=== PATIENT | male | born 1985 | race African-American/Black ===

== ENCOUNTER 2022-08-08 17:09 | Inpatient (IN) | payer MEDICAID ==
[~2022-08-08] VITALS: Ht 175.3 cm; Wt 90.7 kg
[2022-08-08 17:15] VITALS: BP_SYST 153
--- NOTE | 2022-08-08 18:31 | NUR ---
Placed in room 05 . Placed on director script, blood pressure machine and pulse oximeter. To gown for exam. Side rails up. Report given to BEATRIZ Del Angel
--- NOTE | 2022-08-08 18:56 | NUR ---
PATIENT AMBULATORY TO ER, AAOX4 SPEECH CLEAR AND COHERENT, C/O ABDOMINAL PAIN AND VOMITING MANY TIMES, PLACE IN BED 5, AWAITING FOR EDP FOR INITIAL ASSESSMENT.
[2022-08-08] MEDS ORDERED: ONDANSETRON HCL 4 MG/2 ML VIAL IVP ONE (19:00)
--- NOTE | 2022-08-08 19:07 | NUR ---
RECEIVED REPORT PEPITO Corral Pt PENDING EVJORDAN/ ASSESSMENT.
[2022-08-08] MEDS ORDERED: NACL 0.9% 1,000 ML IV ONE (19:15)
[2022-08-08 19:47] LABS: BASOPHILS # (AUTO) 0.1 K/uL (0.0-0.2); BASOPHILS % (AUTO) 0.7 % (0.0-2.0); HEMATOCRIT 43.9 % (36-54); LYMPHOCYTES # (AUTO) 0.7 K/uL (1.0-5.5); LYMPHOCYTES % (AUTO) 5.9 % (20.5-51.5); MEAN CORPUSCULAR VOLUME 98 fL (79.0-98.0); MONOCYTES # (AUTO) 0.5 K/uL (0.0-1.0); MONOCYTES % (AUTO) 4.6 % (1.7-9.3); NEUTROPHILS # (AUTO) 10.5 K/uL (1.8-7.7); NEUTROPHILS % (AUTO) 88.8 % (40.0-70.0); PLATELET COUNT (AUTO) 144 K/uL (130-430); RED BLOOD CELL COUNT(AUTO) 4.48 MIL/uL (4.2-6.2); RED CELL DISTRIBUTION WIDTH 14.2 % (9.0-15.0); WHITE BLOOD COUNT (AUTO) 11.8 K/uL (4.8-10.8)
[2022-08-08 19:49] LABS: ANION GAP 15 (5-15); CALCIUM 11.4 mg/dL (8.4-11.0); CHLORIDE 100 mmol/L (98-107); CREATININE 1.97 mg/dL (0.55-1.30); GLUCOSE 180 mg/dL (70-99); POTASSIUM 3.5 mmol/L (3.5-5.1); UREA NITROGEN, BLOOD 10 mg/dL (8-21)
[2022-08-08 19:51] LABS: GFR AFRICAN AMERICAN 49 mL/min (>90)
[2022-08-08 20:06] LABS: ALANINE AMINOTRANSFERASE 63 U/L (12-78); ALBUMIN 4.4 g/dL (3.4-4.8); ASPARTATE AMINOTRANSFERASE 125 U/L (10-37); TOTAL BILIRUBIN 1.7 mg/dL (0.0-1.0)
[2022-08-08 20:25] LABS: LIPASE 4330 U/L (73-393)
[2022-08-08] MEDS ORDERED: MORPHINE 4 MG INJ. 4 MG/ML VIAL IVP ONE ×2 (20:30→21:30)
[2022-08-08] MEDS ORDERED: cefTRIAXone 1 GM IVPB PREMIX 50 ML IV ONE (20:30)
[2022-08-08] MEDS ORDERED: NACL 0.9% 2,000 ML IV ONE (21:00)
[2022-08-08] MEDS ORDERED: LABETALOL HCL 20 MG/4 ML CARTRIDGE IVP ONE (21:30)
[2022-08-08] MEDS: LR 1,000 ML IV SCH (21:45)
[2022-08-08] MEDS ORDERED: HYDROmorphone 1 MG/ML INJ. CARTRIDGE IVP PRN ×2 (22:00)
[2022-08-08] MEDS ORDERED: PANTOPRAZOLE SODIUM 40 MG/VIAL (PROTONIX) IVP ONE (22:00)
[2022-08-08] MEDS ORDERED: DEXTROSE 50% JECT 50 ML DISP.SYRIN IVP PRN (22:00)
[2022-08-08] MEDS ORDERED: ONDANSETRON HCL 4 MG/2 ML VIAL IVP PRN (22:00)
--- NOTE | 2022-08-08 22:22 | NUR ---
PT W/ C/O PAIN THAT IS DIFFUSED TO ABD, NO RELIEF FROM MORPHINE IVP.
[2022-08-08] MEDS ORDERED: MORPHINE 4 MG INJ. 4 MG/ML VIAL ONE (22:32)
[2022-08-08 22:55] LABS: CKMB RELATIVE INDEX 1.5 (0.0-2.9); CREATINE KINASE MB 5.6 ng/mL (0-3.6)
[2022-08-08] MEDS ORDERED: GLIP2.5T3 PO (23:06)
[2022-08-08] MEDS ORDERED: METF-863 PO (23:06)
[2022-08-08] MEDS ORDERED: NEU300 PO (23:07)
[2022-08-08] MEDS ORDERED: [UNRECOGNIZED DRUG - CODE] PO (23:08)
[2022-08-08] MEDS ORDERED: CYCL10TA24 PO (23:09)
[2022-08-08] MEDS ORDERED: PANT20TA16 PO (23:10)
[2022-08-08] MEDS ORDERED: FOLI-43 PO (23:11)
[2022-08-08] MEDS ORDERED: NABU-140 PO (23:11)
--- NOTE | 2022-08-08 23:19 | NUR ---
Medication reconciliation completed with information provided by patient. Any prior medication reconciliation on file was reviewed and corrected.
[2022-08-08 23:57] LABS: BILIRUBIN,URINE NEGATIVE (NEGATIVE); BLOOD, URINE 1+ (NEGATIVE); CLARITY/URINE CLEAR (CLEAR); COLOR,URINE YELLOW (YELLOW); GLUCOSE,URINE 2+ (NEGATIVE); KETONES,URINE TRACE (NEGATIVE); LEUKOCYTE ESTERASE ,URINE NEGATIVE (NEGATIVE); NITRITE, URINE NEGATIVE (NEGATIVE); PROTEIN URINE 1+ (NEGATIVE)
[2022-08-09] MEDS ORDERED: CARVEDILOL 6.25 MG TABLET (COREG) PO ONE (00:15)
[2022-08-09 00:38] LABS: BARBITURATE, URINE NEGATIVE (NEG <=200); BENZODIAZEPINE, URINE NEGATIVE (NEG <=150); CANNABINOID, URINE POSITIVE (NEG <=50); COCAINE, URINE NEGATIVE (NEG <=150); METHAMPHETAMINES SCREEN,URINE NEGATIVE (NEG <=500); OPIATE, URINE POSITIVE (NEG <=100); URINE AMPHETAMINE NEGATIVE (NEG <=500); URINE METHADONE NEGATIVE (NEG <=200)
[2022-08-09 00:39] LABS: PHENCYCLIDINE SCREEN,URINE NEGATIVE (NEG <=25); UR TRICYCLIC ANTIDEPRESSANTS NEGATIVE (NEG <=300); URINE OXYCODONE SCREEN NEGATIVE (NEG <=100); URINE PROPOXYPHENE SCREEN NEGATIVE (NEG <=300)
[2022-08-09] MEDS: cloNIDine HCL 0.1 MG TABLET PO PRN ×2 (00:44→02:32)
[2022-08-09] MEDS ORDERED: PANTOPRAZOLE SODIUM 40 MG/VIAL (PROTONIX) ONE (00:55)
--- NOTE | 2022-08-09 01:15 | NUR ---
PT W/ INCREASED BP, DR METCALF CALLED, ORDERS GIVEN
--- NOTE | 2022-08-09 01:50 | NUR ---
BP RE-ASSED S/P PAIN MED AND PO BP CONTINUES TO BE HIGH. 186/121
--- NOTE | 2022-08-09 02:32 | NUR ---
Medicated for increased BP w/ clonidine as per orders.
[2022-08-09] MEDS ORDERED: cloNIDine HCL 0.1 MG TABLET ONE (02:34)
--- NOTE | 2022-08-09 02:50 | NUR ---
Pt endorsed Patient will be admitted to care of [facility]. Admitted to Tele unit. Will go to Tele floor when a bed is avail.- at present a ER hold. Belongings list completed. Complete and up to date summary report printed. SBAR report given to Iftikhar Squires RN, given at bedside in ED room #5, with opportunity for questions.
[2022-08-09 03:18] VITALS: BP_SYST 176
--- NOTE | 2022-08-09 03:44 | NUR ---
CONSULTATION PAGED/CALLED Reason for Consultation: ACUTE PRANCREATITIS Person Who was Notified: LUDA Consulting Physician: DONTAE Director Of Income Tax Specialty: Ordering Physician: TEA
--- NOTE | 2022-08-09 04:04 | NUR ---
Report received from TULIO HENDERSON in ER - patient admitted under TELEMETRY but cannot transfer at this time due to staff shortage. Will hold in ER until room available in morning. Patient admitted with diagnosis ACUTE PANCREATITIS.
[2022-08-09 07:00] VITALS: BP_SYST 152
[2022-08-09] MEDS: LR 1,000 ML IV SCH ×5 (07:45→22:45)
--- NOTE | 2022-08-09 07:55 | NUR ---
Patient transferred at this time vital signs stable. IV mid transfer fell out. Attempted 1 try - unsuccessful. Due to time constraints forwarded to [facility] RN. Addendum: 08/09/22 at 0857 by Iftikhar Mckenna RN Transferred to 128A at 0755 [employer]
[2022-08-09 08:00] VITALS: BP_SYST 152
[2022-08-09 08:49] LABS: ALBUMIN 3.3 g/dL (3.4-4.8); CALCIUM 8.6 mg/dL (8.4-11.0); CREATININE 1.55 mg/dL (0.55-1.30); PHOSPHORUS 4.2 mg/dL (2.7-4.5); TOTAL BILIRUBIN 0.9 mg/dL (0.0-1.0)
[2022-08-09] MEDS: PANTOPRAZOLE SODIUM 40 MG/VIAL (PROTONIX) IVP SCH ×2 (09:00→21:16)
[2022-08-09] MEDS: CARVEDILOL 6.25 MG TABLET (COREG) PO SCH ×2 (09:14→21:32)
[2022-08-09 10:25] LABS: INR 1.3 (0.80-1.20); PROTHROMBIN TIME 12.5 SECS (9.5-12.5)
[2022-08-09] MEDS: ACETAMINOPHEN 325 MG TABLET PO PRN (11:55)
[2022-08-09 12:00] VITALS: BP_SYST 159
[2022-08-09 14:18] LABS: BASOPHILS # (AUTO) 0.1 K/uL (0.0-0.2); BASOPHILS % (AUTO) 0.5 % (0.0-2.0); EOSINOPHILS % (AUTO) 0.1 % (0.0-4.0); HEMATOCRIT 40.7 % (36-54); LYMPHOCYTES # (AUTO) 0.7 K/uL (1.0-5.5); LYMPHOCYTES % (AUTO) 5.1 % (20.5-51.5); MEAN CORPUSCULAR VOLUME 101 fL (79.0-98.0); MONOCYTES # (AUTO) 0.5 K/uL (0.0-1.0); MONOCYTES % (AUTO) 3.8 % (1.7-9.3); NEUTROPHILS # (AUTO) 12.1 K/uL (1.8-7.7); NEUTROPHILS % (AUTO) 90.5 % (40.0-70.0); PLATELET COUNT (AUTO) 120 K/uL (130-430); RED BLOOD CELL COUNT(AUTO) 4.04 MIL/uL (4.2-6.2); RED CELL DISTRIBUTION WIDTH 14.6 % (9.0-15.0); WHITE BLOOD COUNT (AUTO) 13.4 K/uL (4.8-10.8)
[2022-08-09] MEDS ORDERED: LEVE500T9 PO (18:34)
[2022-08-09] MEDS ORDERED: CYCLOBENZAPRINE HCL 10 MG TABLET (FLEXERIL) PO PRN (19:45)
[2022-08-09 20:00] VITALS: BP_SYST 150
[2022-08-09] MEDS: chlordiazePOXIDE HCL 25 MG CAPSULE PO SCH (21:16)
[2022-08-09] MEDS: levETIRAcetam 500 MG TABLET PO SCH (21:16)
[2022-08-09] MEDS: GABAPENTIN 300 MG CAPSULE PO SCH (21:16)
[2022-08-09] MEDS: LORazepam 2 MG/ML VIAL IVP PRN (21:18)
[2022-08-09] MEDS: cefTRIAXone 1 GM in D5W 50 ML IV SCH (22:00)
[2022-08-09] MEDS ORDERED: cefTRIAXone 1 GM IVPB PREMIX 50 ML IV ONE (23:21)
[2022-08-10] VITALS: BP_SYST 140
[2022-08-10] MEDS: LR 1,000 ML IV SCH ×4 (03:45→17:29)
--- NOTE | 2022-08-10 06:55 | NUR ---
21:18 THIS RN TO MEDICATE PT WITH ATIVAN IV MD ORDERED PRN- PT VOICED HE WAS ANXIOUS AND NERVOUS. 21:35 BED ALARM SOUNDING AND PATIENT NOTED TRYING TO GET OUT OF BED WITH AN UNSTEADY GAIT AND CONFUSION PRESENT- VOICING HE WANTED TO LEAVE THIS PLACE AND WASN'T SURE HOW HE GOT HERE. PATIENT NOTED WITH WET PERSONAL CLOTHING ON AND BEDDING SATURATED. NOTE SAFETY AND KEEPING PATIENT CLEAN AND DRY. 22:00 PATIENT BED ALARM SOUNDING PATIENT WAS TRYING TO GET OUT OF BED- THIS RN TO SPEAK WITH CHARGE NURSE IN REGARDS TO PATIENT SAFETY AND HIS ROOM BEING SO FAR AT THE END OF THE CHACKO WITH THE INCREASED CONFUSION THUS FAR. 22:10 PATIENT AND PERSONAL BELONGINGS MOVED TO ROOM 103B- WHICH IS CLOSER TO THE NURSES STATION.
[2022-08-10 08:00] VITALS: BP_SYST 156
[2022-08-10] MEDS: PANTOPRAZOLE SODIUM 40 MG/VIAL (PROTONIX) IVP SCH ×2 (09:39→21:51)
[2022-08-10] MEDS: GABAPENTIN 300 MG CAPSULE PO SCH ×3 (09:40→21:52)
[2022-08-10] MEDS: FOLIC ACID 1 MG TABLET PO SCH (09:40)
[2022-08-10] MEDS: chlordiazePOXIDE HCL 25 MG CAPSULE PO SCH ×3 (09:40→21:52)
[2022-08-10] MEDS: levETIRAcetam 500 MG TABLET PO SCH ×2 (09:40→21:52)
[2022-08-10] MEDS: CARVEDILOL 6.25 MG TABLET (COREG) PO SCH ×2 (09:49→21:51)
[2022-08-10 11:25] LABS: ALBUMIN 2.9 g/dL (3.4-4.8); CALCIUM 8.1 mg/dL (8.4-11.0); CREATININE 1.58 mg/dL (0.55-1.30); POTASSIUM 3.8 mmol/L (3.5-5.1); TOTAL BILIRUBIN 0.9 mg/dL (0.0-1.0)
[2022-08-10 11:33] VITALS: BP_SYST 134
[2022-08-10 15:28] VITALS: BP_SYST 141
[2022-08-10 15:38] LABS: HEMATOCRIT 44.8 % (36-54); MEAN CORPUSCULAR VOLUME 103 fL (79.0-98.0); PLATELET COUNT (AUTO) 109 K/uL (130-430); RED BLOOD CELL COUNT(AUTO) 4.35 MIL/uL (4.2-6.2); RED CELL DISTRIBUTION WIDTH 14.5 % (9.0-15.0)
[2022-08-10] MEDS ORDERED: FOLIC ACID 1 MG, THIAMINE HCL 100 MG, MAGNESIUM SULFATE 1 GM, MVI 10 ML in NACL 0.9% 1,... IV SCH (17:45)
--- NOTE | 2022-08-10 18:45 | NUR ---
Mr Wetzel has been assessed as indicated He continues to deny pain. He has made no attempts to ambulate without assistance. He remains confused but has become more clear as the day has progressed. He has been better able to follow the lines of conversation. His mother and father have been at the bedside most of the day. He is slated for a MRCP tomorrow 08/11/22. the questionnaire has been completed and placed in his chart. He has started to attempt to use the urinal to avoid episodes of incontinence that he experienced earlier in the day.
--- NOTE | 2022-08-10 19:15 | NUR ---
Handoff has been given to Rahul
--- NOTE | 2022-08-10 20:00 | NUR ---
Recieved pt from PM nurse Rahul. Pt is aox3-4, non ambulatory, lungs clear, neuro is forgetful, pt sched for MRi and mrcp in am pt denies pain, pt refused BGL check for PM. Vj educate on importance of understanding how to control DM, with BGL checks consistenly. Pt incontinent on RA. Vj monitor for the night
[2022-08-10 20:20] VITALS: BP_SYST 140; BP_SYST 142
[2022-08-10 21:12] LABS: BAND % (MANUAL) 33 % (0-6); BASOPHILS % (MANUAL) 0 % (0-2); EOSINOPHILS % (MANUAL) 0 % (0-7); LYMPHOCYTES % (MANUAL) 9 % (20-46); MONOCYTES % (MANUAL) 4 % (0-11)
[2022-08-10] MEDS: cefTRIAXone 1 GM in D5W 50 ML IV SCH (22:00)
--- NOTE | 2022-08-10 22:00 | NUR ---
Pt stil refuses BGL, will get AM BGL.
[2022-08-11 08:02] LABS: BASOPHILS # (AUTO) 0.1 K/uL (0.0-0.2); BASOPHILS % (AUTO) 0.5 % (0.0-2.0); EOSINOPHILS % (AUTO) 0.1 % (0.0-4.0); HEMATOCRIT 37.3 % (36-54); LYMPHOCYTES # (AUTO) 1.6 K/uL (1.0-5.5); LYMPHOCYTES % (AUTO) 9.5 % (20.5-51.5); MEAN CORPUSCULAR VOLUME 100 fL (79.0-98.0); MONOCYTES # (AUTO) 1.4 K/uL (0.0-1.0); MONOCYTES % (AUTO) 8.5 % (1.7-9.3); NEUTROPHILS # (AUTO) 13.5 K/uL (1.8-7.7); PLATELET COUNT (AUTO) 95 K/uL (130-430); RED BLOOD CELL COUNT(AUTO) 3.74 MIL/uL (4.2-6.2); WHITE BLOOD COUNT (AUTO) 16.5 K/uL (4.8-10.8)
[2022-08-11] MEDS: PANTOPRAZOLE SODIUM 40 MG/VIAL (PROTONIX) IVP SCH ×2 (08:19→20:29)
[2022-08-11] MEDS: CARVEDILOL 6.25 MG TABLET (COREG) PO SCH ×2 (08:19→20:31)
[2022-08-11] MEDS: chlordiazePOXIDE HCL 25 MG CAPSULE PO SCH ×3 (08:20→20:30)
[2022-08-11] MEDS: GABAPENTIN 300 MG CAPSULE PO SCH ×3 (08:20→20:30)
[2022-08-11] MEDS: levETIRAcetam 500 MG TABLET PO SCH ×2 (08:20→20:30)
[2022-08-11] MEDS: FOLIC ACID 1 MG TABLET PO SCH (08:20)
--- NOTE | 2022-08-11 08:21 | NUR ---
rn notes patient refused medications. multiple times. Discussed with him the benefits of taking medications, refused again. took vital signs, patient seems to be acting confused at this time.
[2022-08-11 08:23] LABS: INR 1.2 (0.80-1.20); PROTHROMBIN TIME 12.3 SECS (9.5-12.5)
[2022-08-11 08:27] LABS: ALBUMIN 2.4 g/dL (3.4-4.8); CALCIUM 7.9 mg/dL (8.4-11.0); CREATININE 1.49 mg/dL (0.55-1.30); POTASSIUM 3.6 mmol/L (3.5-5.1); THYROID STIMULATING HORMONE 0.99 uIu/mL (0.36-3.74); TOTAL BILIRUBIN 0.9 mg/dL (0.0-1.0)
--- NOTE | 2022-08-11 08:46 | NUR ---
rn notes patient refusing cleaning. pushing nurses away, grabbing my shirt and tried to pull me. Charge nurse aware, tobacco warehouse agent aware.
[2022-08-11 09:16] VITALS: BP_SYST 144
[2022-08-11 09:19] LABS: NEUTROPHILS % (AUTO) 81.4 % (40.0-70.0)
[2022-08-11] MEDS: LORazepam 2 MG/ML VIAL IVP PRN (09:52)
[2022-08-11] MEDS: FOLIC ACID 1 MG, MVI 10 ML in NACL 0.9% 1,000 ML IV SCH (10:56)
[2022-08-11] MEDS: THIAMINE HCL 100 MG, MAGNESIUM SULFATE 1 GM in NS 100 ML IV SCH (10:56)
[2022-08-11 11:30] VITALS: BP_SYST 165
[2022-08-11] MEDS: cloNIDine HCL 0.1 MG TABLET PO PRN ×2 (13:39→15:44)
--- NOTE | 2022-08-11 15:30 | NUR ---
BUCKLER AND LACER ACSW Lindsay attempted to engage patient to address positive cannabinoids and opiates toxicology results. ACSW stated patient's name 3x, but patient did not wake up. ACSW consulted with RN who stated patient has been confused and is withdrawing. ACSW will continue to be available as needed.
--- NOTE | 2022-08-11 17:49 | NUR ---
rn notes patient remains on room air. Possible withdrawal from etoh, opiates. Ativan given, BP high, catapress given. MD aware. MRI brain, MRCP done. MRI brain negative. MRCP shows acute pancreatitis. Plan is to dc to [place] [facility].
[2022-08-11] MEDS ORDERED: chlordiazePOXIDE HCL 25 MG CAPSULE PO ONE (18:00)
[2022-08-11 20:00] VITALS: BP_SYST 132
[2022-08-11] MEDS ORDERED: cefTRIAXone 1 GM IVPB PREMIX 50 ML IV ONE (23:38)
[2022-08-12] VITALS: BP_SYST 147
[2022-08-12] MEDS: cefTRIAXone 1 GM in D5W 50 ML IV SCH ×2 (00:33→23:43)
--- NOTE | 2022-08-12 00:39 | NUR ---
Patient has been in bed resting , eyes closed, needed light stimulus to awaken prior to this round. Patient currently awake, alert and oriented. Patient assisted to bathroom with mod assist x1.
--- NOTE | 2022-08-12 06:09 | NUR ---
Patient currently in bed resting. Patient c/o no pain during this shift, amb to toliet x1 at this time. Patient was incontinent at the beginning of the shift. Patient was pleasant through out this shift. Patient with no noted wounds. Patient took all meds during this shift with no difficulties. Patient had banana bag scheduled for 1000, please pass on to next shift that Patient does not have IVF that run in between the banana bags. Dr. Ross was called last night and he stated there are no other orders for fluids and to not call him and ask about fluids that are not ordered.
--- NOTE | 2022-08-12 06:52 | NUR ---
This nurse requested to change Patient prior to end of shift, however, Patient states that he is clean and does not need to be changed at this time.
[2022-08-12 06:59] LABS: BASOPHILS # (AUTO) 0.1 K/uL (0.0-0.2); BASOPHILS % (AUTO) 0.6 % (0.0-2.0); EOSINOPHILS # (AUTO) 0.1 K/uL (0.0-0.4); EOSINOPHILS % (AUTO) 1.1 % (0.0-4.0); LYMPHOCYTES # (AUTO) 1.8 K/uL (1.0-5.5); LYMPHOCYTES % (AUTO) 13.5 % (20.5-51.5); MEAN CORPUSCULAR VOLUME 99 fL (79.0-98.0); MONOCYTES # (AUTO) 1.5 K/uL (0.0-1.0); MONOCYTES % (AUTO) 11.3 % (1.7-9.3); NEUTROPHILS # (AUTO) 9.8 K/uL (1.8-7.7); NEUTROPHILS % (AUTO) 73.5 % (40.0-70.0); PLATELET COUNT (AUTO) 119 K/uL (130-430); RED BLOOD CELL COUNT(AUTO) 3.34 MIL/uL (4.2-6.2); RED CELL DISTRIBUTION WIDTH 13.7 % (9.0-15.0); WHITE BLOOD COUNT (AUTO) 13.3 K/uL (4.8-10.8)
[2022-08-12 07:25] LABS: ALBUMIN 2.1 g/dL (3.4-4.8); CALCIUM 7.5 mg/dL (8.4-11.0); CREATININE 1.24 mg/dL (0.55-1.30); POTASSIUM 3.6 mmol/L (3.5-5.1); TOTAL BILIRUBIN 0.8 mg/dL (0.0-1.0)
--- NOTE | 2022-08-12 07:30 | NUR ---
Report received from BEATRIZ wynn for continuity of care. Patient stable.
--- NOTE | 2022-08-12 07:32 | NUR ---
Report received from BEATRIZ Bob for continuity of care. Patient stable condition.
[2022-08-12 08:15] VITALS: BP_SYST 156
[2022-08-12] MEDS: CARVEDILOL 6.25 MG TABLET (COREG) PO SCH ×2 (10:20→21:12)
[2022-08-12] MEDS: levETIRAcetam 500 MG TABLET PO SCH ×2 (10:20→21:13)
[2022-08-12] MEDS: FOLIC ACID 1 MG TABLET PO SCH (10:21)
[2022-08-12] MEDS: chlordiazePOXIDE HCL 25 MG CAPSULE PO SCH ×2 (10:21→21:13)
[2022-08-12] MEDS: PANTOPRAZOLE SODIUM 40 MG/VIAL (PROTONIX) IVP SCH ×2 (10:21→21:12)
[2022-08-12] MEDS: GABAPENTIN 300 MG CAPSULE PO SCH ×3 (10:21→21:13)
[2022-08-12] MEDS: FOLIC ACID 1 MG, MVI 10 ML in NACL 0.9% 1,000 ML IV SCH (11:00)
[2022-08-12] MEDS: THIAMINE HCL 100 MG, MAGNESIUM SULFATE 1 GM in NS 100 ML IV SCH (11:00)
[2022-08-12 11:36] VITALS: BP_SYST 139
--- NOTE | 2022-08-12 12:06 | NUR ---
DEBURRING AND TOOLING MACHINE OPERATOR ACSW Lindsay continued efforts to engage patient to address positive toxicology results and offer social service support. ACSW called patient's name 4 times and knocked on lunch tray. Patient did not wake up, and was observed to be snoring. ACSW will continue to be available as needed
[2022-08-12 13:06] LABS: HEPATITIS A AB, IgM Negative (Negative); HEPATITIS B CORE AB, IgM Negative (Negative); HEPATITIS B SURFACE AG Negative (Negative)
[2022-08-12 14:06] LABS: ANTI NUCLEAR AB WITH REFLEX Negative (Negative)
--- NOTE | 2022-08-12 15:25 | NUR ---
Discharge Planning: DCP faxed pt home health to [facility] P#[phone] F#[phone]. DCP to follow up
[2022-08-12 15:31] VITALS: BP_SYST 157
--- NOTE | 2022-08-12 16:43 | NUR ---
Home Health accepted patient: [facility] .
[2022-08-12] MEDS ORDERED: NEPHROVITE, (FOLIC ACID/VITAMIN B COMP W-C 1 TAB) PO ONE (18:30)
[2022-08-12] MEDS ORDERED: MULTIVITAMINS TAB 1 TABLET PO ONE (18:30)
--- NOTE | 2022-08-12 19:30 | NUR ---
Patient had big BM. reported to Dr. Ross and Lisbeth vacuum cleaner assemblershift supervisor film processing.
[2022-08-12 20:00] VITALS: BP_SYST 165
--- NOTE | 2022-08-12 20:16 | NUR ---
Report given to BEATRIZ wynn for continuity of care. Patient stable.
[2022-08-12] MEDS ORDERED: cefTRIAXone 1 GM VIAL ONE (23:26)
[2022-08-13 00:27] VITALS: BP_SYST 165
[2022-08-13] MEDS: cloNIDine HCL 0.1 MG TABLET PO PRN (01:15)
--- NOTE | 2022-08-13 04:15 | NUR ---
PATIENT HAS BEEN CALM AND PLEASANT DURING THIS SHIFT. PATIENT HAS BEEN INCONTINENT OF B&B. PATIENT TOOK ALL MEDS SCHEDULED DURING THIS SHIFT AND A PRN CLONIDINE FOR HTN. PATIENT REMAINS FREE FROM WOUNDS AND FALLS. PATIENT VERBALIZED NO C/O PAIN.
[2022-08-13 07:53] LABS: BASOPHILS # (AUTO) 0.1 K/uL (0.0-0.2); BASOPHILS % (AUTO) 0.4 % (0.0-2.0); EOSINOPHILS # (AUTO) 0.3 K/uL (0.0-0.4); EOSINOPHILS % (AUTO) 2.3 % (0.0-4.0); HEMATOCRIT 34.1 % (36-54); LYMPHOCYTES # (AUTO) 1.5 K/uL (1.0-5.5); LYMPHOCYTES % (AUTO) 11.3 % (20.5-51.5); MEAN CORPUSCULAR VOLUME 98 fL (79.0-98.0); MONOCYTES # (AUTO) 1.9 K/uL (0.0-1.0); MONOCYTES % (AUTO) 14.3 % (1.7-9.3); NEUTROPHILS # (AUTO) 9.3 K/uL (1.8-7.7); NEUTROPHILS % (AUTO) 71.7 % (40.0-70.0); PLATELET COUNT (AUTO) 168 K/uL (130-430); RED BLOOD CELL COUNT(AUTO) 3.49 MIL/uL (4.2-6.2); RED CELL DISTRIBUTION WIDTH 13.8 % (9.0-15.0)
--- NOTE | 2022-08-13 07:54 | NUR ---
Report received from police shift commander BEATRIZ Bob for continuity of care. Patient stable resting at the moment.
[2022-08-13 07:55] VITALS: BP_SYST 127
--- NOTE | 2022-08-13 08:18 | NUR ---
Discharge Planning: [facility] [phone] accepted patient.
[2022-08-13 08:57] LABS: CALCIUM 8.5 mg/dL (8.4-11.0); CREATININE 1.13 mg/dL (0.55-1.30); POTASSIUM 3.5 mmol/L (3.5-5.1); TOTAL BILIRUBIN 0.8 mg/dL (0.0-1.0)
[2022-08-13] MEDS: GABAPENTIN 300 MG CAPSULE PO SCH ×3 (09:45→22:23)
[2022-08-13] MEDS: chlordiazePOXIDE HCL 25 MG CAPSULE PO SCH ×4 (09:45→22:23)
[2022-08-13] MEDS: FOLIC ACID 1 MG TABLET PO SCH (09:45)
[2022-08-13] MEDS: CARVEDILOL 6.25 MG TABLET (COREG) PO SCH ×2 (09:46→22:24)
[2022-08-13] MEDS: THIAMINE HCL 100 MG TABLET GT SCH (09:47)
[2022-08-13] MEDS: PANTOPRAZOLE SODIUM 40 MG/VIAL (PROTONIX) IVP SCH ×2 (09:47→22:24)
[2022-08-13] MEDS: MULTIVITAMINS TAB 1 TABLET PO SCH ×2 (10:02→22:24)
[2022-08-13] MEDS: NEPHROVITE, (FOLIC ACID/VITAMIN B COMP W-C 1 TAB) PO SCH (10:02)
[2022-08-13] MEDS: levETIRAcetam 500 MG TABLET PO SCH ×2 (10:02→22:23)
[2022-08-13] MEDS: FOLIC ACID 1 MG, MVI 10 ML in NACL 0.9% 1,000 ML IV SCH (11:00)
[2022-08-13] MEDS: THIAMINE HCL 100 MG, MAGNESIUM SULFATE 1 GM in NS 100 ML IV SCH (11:00)
[2022-08-13 11:26] VITALS: BP_SYST 161
--- NOTE | 2022-08-13 11:58 | NUR ---
NURSE REPORTS BP IS HIGH. WILL ATTEMPT TREATMENT TOMORROW.
--- NOTE | 2022-08-13 12:44 | NUR ---
Retirement Village Manager REGIONAL TANKER TRUCK DRIVER met with pt. bedside who eating his lunch. Pt. was polite and agreeable to this interview. Pt. denied using any drugs as REGIONAL TANKER TRUCK DRIVER explained he tested positive for Opioids and Cannibis. Pt. denied using. REGIONAL TANKER TRUCK DRIVER asked if he has an issue with alcohol. Pt. stated he has been sober and is AA for the past 6 months. Pt. stated he does indeed have a PCP, did not remember the name, but this is at [facility]. Pt. stated he will be discharged and his mom will assist him in his recovery. REGIONAL TANKER TRUCK DRIVER asked pt. if she could leave some resources for him. Pt agreed. REGIONAL TANKER TRUCK DRIVER explained the resources which included, Mental Health, Medical Clinic and substance abuse resources. Pt. stated he did not have any questions. REGIONAL TANKER TRUCK DRIVER will remain available.
--- NOTE | 2022-08-13 13:00 | NUR ---
Patient restless wanting to get out of bed. Patient wouldnt take librium. Patient attempted to take RN Ever's hand and hold it. Ever was able to remove hand in time. SP Olson made aware. PRN Ativan given as indicated
[2022-08-13] MEDS: LORazepam 2 MG/ML VIAL IVP PRN (14:40)
[2022-08-13 15:27] VITALS: BP_SYST 150
[2022-08-13] MEDS ORDERED: QUEtiapine FUMARATE 25 MG TABLET PO SCH (18:00)
--- NOTE | 2022-08-13 19:30 | NUR ---
Report given to mold shifter RN for continuity of care. Patient stable.
[2022-08-14] VITALS: BP_SYST 188
[2022-08-14] MEDS ORDERED: cefTRIAXone 1 GM IVPB PREMIX 50 ML IV ONE (00:18)
[2022-08-14] MEDS: cefTRIAXone 1 GM in D5W 50 ML IV SCH (00:21)
[2022-08-14] MEDS: cloNIDine HCL 0.1 MG TABLET PO PRN ×3 (02:57→09:52)
[2022-08-14] MEDS: INSULIN REGULAR, HUMAN 100 UNITS/ML, 3 ML VIAL (humuLIN R) SUBCUT PRN (06:42)
[2022-08-14 07:09] LABS: BASOPHILS # (AUTO) 0.1 K/uL (0.0-0.2); BASOPHILS % (AUTO) 0.6 % (0.0-2.0); EOSINOPHILS # (AUTO) 0.3 K/uL (0.0-0.4); EOSINOPHILS % (AUTO) 2.2 % (0.0-4.0); HEMATOCRIT 33.6 % (36-54); LYMPHOCYTES # (AUTO) 1.6 K/uL (1.0-5.5); LYMPHOCYTES % (AUTO) 10.4 % (20.5-51.5); MEAN CORPUSCULAR VOLUME 99 fL (79.0-98.0); MONOCYTES # (AUTO) 1.8 K/uL (0.0-1.0); MONOCYTES % (AUTO) 11.6 % (1.7-9.3); NEUTROPHILS # (AUTO) 11.6 K/uL (1.8-7.7); NEUTROPHILS % (AUTO) 75.2 % (40.0-70.0); PLATELET COUNT (AUTO) 219 K/uL (130-430); RED BLOOD CELL COUNT(AUTO) 3.41 MIL/uL (4.2-6.2); WHITE BLOOD COUNT (AUTO) 15.4 K/uL (4.8-10.8)
[2022-08-14 07:24] LABS: ALBUMIN 2.1 g/dL (3.4-4.8); CALCIUM 8.4 mg/dL (8.4-11.0); CREATININE 1.02 mg/dL (0.55-1.30); POTASSIUM 3.5 mmol/L (3.5-5.1); TOTAL BILIRUBIN 0.8 mg/dL (0.0-1.0)
[2022-08-14 08:00] VITALS: BP_SYST 161
--- NOTE | 2022-08-14 08:56 | NUR ---
CONSULTATION PAGED/CALLED Reason for Consultation: severe carotid stenosis Person Who was Notified: dr eastman Consulting Physician: gerri eastman Ordering Physician: nona hanson
[2022-08-14] MEDS: PANTOPRAZOLE SODIUM 40 MG/VIAL (PROTONIX) IVP SCH ×2 (09:51→21:00)
[2022-08-14] MEDS: FOLIC ACID 1 MG TABLET PO SCH (09:51)
[2022-08-14] MEDS: THIAMINE HCL 100 MG TABLET GT SCH (09:51)
[2022-08-14] MEDS: NEPHROVITE, (FOLIC ACID/VITAMIN B COMP W-C 1 TAB) PO SCH (09:51)
[2022-08-14] MEDS: MULTIVITAMINS TAB 1 TABLET PO SCH ×2 (09:51→21:00)
[2022-08-14] MEDS: chlordiazePOXIDE HCL 25 MG CAPSULE PO SCH (09:51)
[2022-08-14] MEDS: GABAPENTIN 300 MG CAPSULE PO SCH ×3 (09:51→20:59)
[2022-08-14] MEDS: levETIRAcetam 500 MG TABLET PO SCH ×2 (09:51→20:59)
[2022-08-14] MEDS: CARVEDILOL 6.25 MG TABLET (COREG) PO SCH ×2 (09:52→21:00)
[2022-08-14] MEDS: ACETAMINOPHEN 325 MG TABLET PO PRN (10:03)
--- NOTE | 2022-08-14 10:21 | NUR ---
CONSULTATION PAGED/CALLED Reason for Consultation: madhav luke Person Who was Notified: ludy Consulting Physician: madhav luke Ordering Physician: bren hi
[2022-08-14] MEDS: FOLIC ACID 1 MG, MVI 10 ML in NACL 0.9% 1,000 ML IV SCH (11:25)
[2022-08-14] MEDS: THIAMINE HCL 100 MG, MAGNESIUM SULFATE 1 GM in NS 100 ML IV SCH (11:25)
--- NOTE | 2022-08-14 11:31 | NUR ---
CONSULTED PT VIA [facility].
[2022-08-14 11:39] VITALS: BP_SYST 149
--- NOTE | 2022-08-14 13:14 | NUR ---
CONSULTATION PAGED/CALLED Reason for Consultation: DEPRESSION Person Who was Notified: DR GONZALES Consulting Physician: NEYDA GONZALES Ordering Physician:JAYDON METCALF
[2022-08-14] MEDS ORDERED: PIPERACILLIN/TAZO 4.5GM/DEX-IS 100 ML IV SCH (14:00)
[2022-08-14] MEDS: PIPERACILLIN/TAZO 4.5 GM in NS 100 ML IV SCH ×2 (14:36→20:58)
[2022-08-14 15:27] VITALS: BP_SYST 156
[2022-08-14] MEDS ORDERED: HALOPERIDOL 5 MG TABLET (HALDOL) PO ONE (17:15)
--- NOTE | 2022-08-14 18:48 | NUR ---
PT HAS BEEN SLEEPING THROUGHOUT SHIFT. PT EASILY ABLE TO BE WOKEN UP. PT ABLE TO TAKE ALL MEDICATION. MD ADJUSTED MEDICATION DUE TO PT BEING DROWSY. WILL ENDORSE CARE TO NIGHT RN.
--- NOTE | 2022-08-14 18:51 | NUR ---
PT DID NOT HAVE A BM DURING SHIFT
[2022-08-14 19:35] VITALS: BP_SYST 162
--- NOTE | 2022-08-14 19:35 | NUR ---
INITIAL NOTE AT INITIAL ASSESSMENT, PATIENT IS RESTING IN BED, STABLE, NO SIGNS OF RESPIRATORY DISTRESS. HE IS LETHARGIC BY AROUSABLE TO NAME. PLAN OF CARE FOR THE EVENING IS COMMUNICATED WITH PATIENT AND HIS FATHER AT BEDSIDE. CALL LIGHT TEACH BACK IS SUCCESSFUL AT THIS TIME. PATIENT VERBALIZES NO PAIN. BED IS LOCKED, ALARMED, AND THE LOWEST LEVEL. FALL, SAFETY, ASPIRATION, AND RESPIRATORY PRECAUTIONS WILL BE TAKEN THROUGHOUT THE SHIFT.
[2022-08-14] MEDS: HALOPERIDOL 5 MG TABLET (HALDOL) PO SCH (21:00)
[2022-08-14] MEDS ORDERED: cefTRIAXone 1 GM IVPB PREMIX 50 ML IV SCH (22:00)
[2022-08-15] VITALS: BP_SYST 154
--- NOTE | 2022-08-15 00:05 | NUR ---
ROUNDS PATIENT IS SLEEPING, STABLE, NO SIGNS OF RESPIRATORY DISTRESS. CALL LIGHT IS WITHIN REACH OF HAND. BED IS LOCKED, ALARMED, AND AT THE LOWEST LEVEL.
--- NOTE | 2022-08-15 05:15 | NUR ---
HYGIENE CARE PATIENT HAD A VOID, HYGIENE CARE PROVIDED AT THIS TIME, FRESH LINENS ALSO PROVIDED. HE IS REPOSITIONED FOR COMFORT, PATIENT TOLERATED WELL.
[2022-08-15] MEDS: PIPERACILLIN/TAZO 4.5 GM in NS 100 ML IV SCH ×3 (05:56→21:18)
--- NOTE | 2022-08-15 06:38 | NUR ---
CLOSING NOTE PATIENT SLEPT WELL DURING THE NIGHT, HE WAS AROUSABLE TO VERBAL STIMULI, PATIENT VERBALIZES HE KNOWS HE IS MORE ALERT NOW. HE HAD NO COMPLAINTS OF PAIN. CURRENTLY, THE PATIENT IS RESTING IN BED, STABLE, NO SIGNS OF RESPIRATORY DISTRESS. CALL LIGHT IS WITHIN REACH. BED IS LOCKED, ALARMED, AND AT THE LOWEST LEVEL. FALL, SAFETY, ASPIRATION, AND RESPIRATORY PRECAUTIONS HAVE BEEN IN PLACE THROUGHOUT THE NIGHT. WILL CONTINUE TO MONITOR UNTIL REPORT IS GIVEN AT BEDSIDE TO AM NURSE.
[2022-08-15 07:59] LABS: BASOPHILS # (AUTO) 0.2 K/uL (0.0-0.2); EOSINOPHILS # (AUTO) 0.3 K/uL (0.0-0.4); EOSINOPHILS % (AUTO) 2.2 % (0.0-4.0); HEMATOCRIT 36.1 % (36-54); LYMPHOCYTES # (AUTO) 1.8 K/uL (1.0-5.5); LYMPHOCYTES % (AUTO) 11.2 % (20.5-51.5); MEAN CORPUSCULAR VOLUME 98 fL (79.0-98.0); MONOCYTES # (AUTO) 1.1 K/uL (0.0-1.0); MONOCYTES % (AUTO) 6.8 % (1.7-9.3); NEUTROPHILS # (AUTO) 12.5 K/uL (1.8-7.7); PLATELET COUNT (AUTO) 283 K/uL (130-430); RED BLOOD CELL COUNT(AUTO) 3.69 MIL/uL (4.2-6.2); RED CELL DISTRIBUTION WIDTH 14.1 % (9.0-15.0); WHITE BLOOD COUNT (AUTO) 15.9 K/uL (4.8-10.8)
[2022-08-15 08:22] VITALS: BP_SYST 155
[2022-08-15 08:24] LABS: CALCIUM 8.8 mg/dL (8.4-11.0); CREATININE 1.24 mg/dL (0.55-1.30); POTASSIUM 3.5 mmol/L (3.5-5.1); TOTAL BILIRUBIN 0.7 mg/dL (0.0-1.0)
[2022-08-15] MEDS: THIAMINE HCL 100 MG TABLET GT SCH (08:38)
[2022-08-15] MEDS: levETIRAcetam 500 MG TABLET PO SCH ×2 (08:38→21:17)
[2022-08-15] MEDS: MULTIVITAMINS TAB 1 TABLET PO SCH ×2 (08:39→21:17)
[2022-08-15] MEDS: PANTOPRAZOLE SODIUM 40 MG/VIAL (PROTONIX) IVP SCH ×2 (08:39→21:18)
[2022-08-15] MEDS: CARVEDILOL 6.25 MG TABLET (COREG) PO SCH ×2 (08:39→21:28)
[2022-08-15] MEDS: GABAPENTIN 300 MG CAPSULE PO SCH ×3 (08:39→21:17)
[2022-08-15] MEDS: NEPHROVITE, (FOLIC ACID/VITAMIN B COMP W-C 1 TAB) PO SCH (08:39)
[2022-08-15] MEDS: FOLIC ACID 1 MG TABLET PO SCH (08:39)
[2022-08-15] MEDS: HALOPERIDOL 5 MG TABLET (HALDOL) PO SCH (08:40)
[2022-08-15] MEDS: FOLIC ACID 1 MG, MVI 10 ML in NACL 0.9% 1,000 ML IV SCH (11:06)
[2022-08-15] MEDS: THIAMINE HCL 100 MG, MAGNESIUM SULFATE 1 GM in NS 100 ML IV SCH (11:07)
[2022-08-15 11:41] VITALS: BP_SYST 152
--- NOTE | 2022-08-15 14:00 | NUR ---
dr hi at bedside. He spoke with pt and stated she a diabetic. pt started on metformin Addendum: 08/15/22 at 1855 by Timothy Duarte RN wrong pt
[2022-08-15 14:34] LABS: NEUTROPHILS % (AUTO) 78.8 % (40.0-70.0)
[2022-08-15] MEDS ORDERED: DIATR MEGLU/DIATRIZ SOD 30 ML SOLUTION PO ONE (14:51)
[2022-08-15 15:30] VITALS: BP_SYST 176
--- NOTE | 2022-08-15 15:45 | NUR ---
OFFERED PT PRN BP MEDICATION. PT REFUSED NEED FOR MEDICATION
--- NOTE | 2022-08-15 18:00 | NUR ---
pt take for ct scan of abd with contrast
--- NOTE | 2022-08-15 18:58 | NUR ---
pt back from ct scan
[2022-08-15 19:35] VITALS: BP_SYST 184
--- NOTE | 2022-08-15 19:35 | NUR ---
INITIAL NOTE AT INITIAL ASSESSMENT, PATIENT IS RESTING IN BED, STABLE, NO SIGNS OF RESPIRATORY DISTRESS. HE IS LETHARGIC BUT AROUSABLE TO NAME. PLAN OF CARE FOR THE EVENING IS COMMUNICATED WITH PATIENT AND HIS FATHER AT BEDSIDE. CALL LIGHT TEACH BACK IS SUCCESSFUL AT THIS TIME. PATIENT VERBALIZES NO PAIN. BED IS LOCKED, ALARMED, AND THE LOWEST LEVEL. FALL, SAFETY, ASPIRATION, AND RESPIRATORY PRECAUTIONS WILL BE TAKEN THROUGHOUT THE SHIFT.
[2022-08-15] MEDS: HALOPERIDOL 1 MG TABLET (HALDOL) PO SCH (21:17)
[2022-08-15] MEDS: cloNIDine HCL 0.1 MG TABLET PO PRN (21:30)
--- NOTE | 2022-08-15 22:10 | NUR ---
BOWEL MOVEMENT / HYGIENE CARE PATIENT HAD A BOWEL MOVEMENT AND VOID, HYGIENE CARE PROVIDED AT THIS TIME, FRESH LINENS ALSO PROVIDED. HE IS REPOSITIONED FOR COMFORT, PATIENT TOLERATED WELL.
[2022-08-16] VITALS: BP_SYST 150
--- NOTE | 2022-08-16 00:20 | NUR ---
ROUNDS PATIENT IS SLEEPING, STABLE, NO SIGNS OF RESPIRATORY DISTRESS. CALL LIGHT IS WITHIN REACH OF HAND. BED IS LOCKED, ALARMED, AND AT THE LOWEST LEVEL.
--- NOTE | 2022-08-16 03:30 | NUR ---
MIDLINE DRESSING CHANGE MIDLINE DRESSING CHANGE COMPLETED AT THIS TIME PER PROTOCOL, PATIENT TOLERATED WELL. MIDLINE IS SECURED AND LABELED WITH NEXT DRESSING CHANGE DUE DATE FOR 08/23/22.
[2022-08-16] MEDS: PIPERACILLIN/TAZO 4.5 GM in NS 100 ML IV SCH ×3 (06:23→22:15)
--- NOTE | 2022-08-16 06:50 | NUR ---
CLOSING NOTE PATIENT SLEPT WELL DURING THE NIGHT, HE WAS AROUSABLE TO VERBAL STIMULI. HE HAD SEVERAL BOWEL MOVEMENTS. HE HAD NO COMPLAINTS OF PAIN. CURRENTLY, THE PATIENT IS RESTING IN BED, STABLE, NO SIGNS OF RESPIRATORY DISTRESS. CALL LIGHT IS WITHIN REACH. BED IS LOCKED, ALARMED, AND AT THE LOWEST LEVEL. FALL, SAFETY, ASPIRATION, AND RESPIRATORY PRECAUTIONS HAVE BEEN IN PLACE THROUGHOUT THE NIGHT. WILL CONTINUE TO MONITOR UNTIL REPORT IS GIVEN AT BEDSIDE TO AM NURSE.
[2022-08-16 07:35] LABS: BASOPHILS # (AUTO) 0.1 K/uL (0.0-0.2); BASOPHILS % (AUTO) 0.5 % (0.0-2.0); EOSINOPHILS # (AUTO) 0.3 K/uL (0.0-0.4); EOSINOPHILS % (AUTO) 2.2 % (0.0-4.0); HEMATOCRIT 35.3 % (36-54); LYMPHOCYTES # (AUTO) 1.8 K/uL (1.0-5.5); LYMPHOCYTES % (AUTO) 11.2 % (20.5-51.5); MEAN CORPUSCULAR VOLUME 96 fL (79.0-98.0); MONOCYTES % (AUTO) 6.3 % (1.7-9.3); NEUTROPHILS # (AUTO) 12.5 K/uL (1.8-7.7); NEUTROPHILS % (AUTO) 79.8 % (40.0-70.0); PLATELET COUNT (AUTO) 323 K/uL (130-430); RED BLOOD CELL COUNT(AUTO) 3.68 MIL/uL (4.2-6.2); RED CELL DISTRIBUTION WIDTH 14.1 % (9.0-15.0); WHITE BLOOD COUNT (AUTO) 15.6 K/uL (4.8-10.8)
[2022-08-16 07:57] LABS: CALCIUM 8.8 mg/dL (8.4-11.0); CREATININE 1.1 mg/dL (0.55-1.30); POTASSIUM 3.3 mmol/L (3.5-5.1); TOTAL BILIRUBIN 0.7 mg/dL (0.0-1.0)
--- NOTE | 2022-08-16 08:35 | NUR ---
INITIAL ROUNDS Received pt AAOx4, no s/s resp distress, no c/o pain or discomfort. IVF at KVO to NEREIDA midline with no s/s infiltration to site, dressing clean, dry and intact. Plan of care for the day reviewed with pt-pt verbalized his understanding. Pain management, disease process, skin and safety discussed-teach done. Side rails up x3, bed alarm on and room close to nursing station for safety. Call light within reach.
[2022-08-16 09:02] VITALS: BP_SYST 185
[2022-08-16] MEDS: FOLIC ACID 1 MG TABLET PO SCH (10:24)
[2022-08-16] MEDS: NEPHROVITE, (FOLIC ACID/VITAMIN B COMP W-C 1 TAB) PO SCH (10:25)
[2022-08-16] MEDS: HALOPERIDOL 1 MG TABLET (HALDOL) PO SCH ×3 (10:25→22:14)
[2022-08-16] MEDS: THIAMINE HCL 100 MG TABLET GT SCH (10:25)
[2022-08-16] MEDS: MULTIVITAMINS TAB 1 TABLET PO SCH ×2 (10:25→22:15)
[2022-08-16] MEDS: GABAPENTIN 300 MG CAPSULE PO SCH ×3 (10:25→22:15)
[2022-08-16] MEDS: levETIRAcetam 500 MG TABLET PO SCH ×2 (10:25→22:15)
[2022-08-16] MEDS: CARVEDILOL 6.25 MG TABLET (COREG) PO SCH (10:26)
[2022-08-16] MEDS: PANTOPRAZOLE SODIUM 40 MG/VIAL (PROTONIX) IVP SCH ×2 (10:28→22:14)
[2022-08-16] MEDS ORDERED: POTASSIUM CHLORIDE 20 MEQ TAB.PRT.SR PO ONE (11:30)
[2022-08-16 11:52] VITALS: BP_SYST 163
[2022-08-16] MEDS: THIAMINE HCL 100 MG, MAGNESIUM SULFATE 1 GM in NS 100 ML IV SCH (12:45)
[2022-08-16] MEDS: FOLIC ACID 1 MG, MVI 10 ML in NACL 0.9% 1,000 ML IV SCH (12:46)
[2022-08-16] MEDS: FLUCONAZOLE 200 mg/ NS 100 ML IV SCH (15:11)
[2022-08-16] MEDS: cloNIDine HCL 0.2 MG TABLET PO PRN ×2 (15:18→22:25)
--- NOTE | 2022-08-16 15:55 | NUR ---
PT WAS SEEN FOR DYSPHAGIA. PT WAS ABLE TO SAFELY SWALLOW REGULAR DIET WITH THIN LIQUID WITHOUT S/S OF ASPIRATION. RECOMMENDATION REGULAR DIET WITH THIN LIQUID
[2022-08-16 16:00] VITALS: BP_SYST 160
--- NOTE | 2022-08-16 16:15 | NUR ---
Dietitian Recommendations * Advance to Consistent CHO diet when medically appropriate * Glucerna shake BID (provides 440 kcals, 20g protein) * Continue MVI, thiamine Please refer to nutrition assessment for details, thanks! CC, MPH, RDN
--- NOTE | 2022-08-16 19:40 | NUR ---
INITIAL NOTE AT INITIAL ASSESSMENT, PATIENT IS RESTING IN BED, STABLE, NO SIGNS OF RESPIRATORY DISTRESS. HE IS LETHARGIC BUT AROUSABLE TO LIGHT TOUCH. PLAN OF CARE FOR THE EVENING IS COMMUNICATED WITH PATIENT AND HIS FATHER AT BEDSIDE. CALL LIGHT TEACH BACK IS SUCCESSFUL AT THIS TIME. PATIENT VERBALIZES NO PAIN. BED IS LOCKED, ALARMED, AND THE LOWEST LEVEL. FALL, SAFETY, ASPIRATION, AND RESPIRATORY PRECAUTIONS WILL BE TAKEN THROUGHOUT THE SHIFT.
[2022-08-16 20:00] VITALS: BP_SYST 181
--- NOTE | 2022-08-16 21:45 | NUR ---
HYGIENE CARE PATIENT HAD A LARGE BOWEL MOVEMENT AND A VOID, HYGIENE CARE PROVIDED AT THIS TIME, FRESH LINENS ALSO PROVIDED. HE IS REPOSITIONED FOR COMFORT, PATIENT TOLERATED WELL.
[2022-08-16] MEDS: CARVEDILOL 12.5 MG TABLET (COREG) PO SCH (22:24)
[2022-08-17] VITALS: BP_SYST 142
--- NOTE | 2022-08-17 00:15 | NUR ---
ROUNDS PATIENT IS SLEEPING, STABLE, NO SIGNS OF RESPIRATORY DISTRESS. CALL LIGHT IS WITHIN REACH OF HAND. BED IS LOCKED, ALARMED, AND AT THE LOWEST LEVEL.
[2022-08-17] MEDS: PIPERACILLIN/TAZO 4.5 GM in NS 100 ML IV SCH ×3 (05:58→21:34)
--- NOTE | 2022-08-17 06:57 | NUR ---
CLOSING NOTE PATIENT SLEPT WELL DURING THE NIGHT, HE WAS COOPERATIVE TO CARE. HE WAS AROUSABLE TO LIGHT TOUCH. HE HAD TWO BOWEL MOVEMENTS. HE HAD NO COMPLAINTS OF PAIN. CURRENTLY, THE PATIENT IS RESTING IN BED, STABLE, NO SIGNS OF RESPIRATORY DISTRESS. CALL LIGHT IS WITHIN REACH. BED IS LOCKED, ALARMED, AND AT THE LOWEST LEVEL. FALL, SAFETY, ASPIRATION, AND RESPIRATORY PRECAUTIONS HAVE BEEN IN PLACE THROUGHOUT THE NIGHT. WILL CONTINUE TO MONITOR UNTIL REPORT IS GIVEN AT BEDSIDE TO AM NURSE.
[2022-08-17 07:59] LABS: CALCIUM 9.2 mg/dL (8.4-11.0); CREATININE 1.08 mg/dL (0.55-1.30); POTASSIUM 3.7 mmol/L (3.5-5.1); TOTAL BILIRUBIN 0.7 mg/dL (0.0-1.0)
--- NOTE | 2022-08-17 08:08 | NUR ---
INITIAL ROUNDS Received pt AAOx4, no s/s resp distress, no c/o pain or discomfort, less sleepy today. Pt sitting up to eat his breakfast. IVF at KVO to NEREIDA midline with no s/s infiltration to site, dressing clean, dry and intact. Plan of care for the day reviewed with pt-pt verbalized his understanding. Pain management, disease process, skin and safety discussed-teach done. Side rails up x3, bed alarm on and room close to nursing station for safety. Call light within reach.
[2022-08-17 08:23] VITALS: BP_SYST 181
[2022-08-17] MEDS: NEPHROVITE, (FOLIC ACID/VITAMIN B COMP W-C 1 TAB) PO SCH (09:13)
[2022-08-17] MEDS: FOLIC ACID 1 MG TABLET PO SCH (09:13)
[2022-08-17] MEDS: levETIRAcetam 500 MG TABLET PO SCH ×2 (09:13→21:33)
[2022-08-17] MEDS: THIAMINE HCL 100 MG TABLET GT SCH (09:13)
[2022-08-17] MEDS: GABAPENTIN 300 MG CAPSULE PO SCH ×3 (09:13→21:32)
[2022-08-17] MEDS: MULTIVITAMINS TAB 1 TABLET PO SCH ×2 (09:13→21:32)
[2022-08-17] MEDS: HALOPERIDOL 1 MG TABLET (HALDOL) PO SCH ×3 (09:13→21:33)
[2022-08-17] MEDS: CARVEDILOL 12.5 MG TABLET (COREG) PO SCH ×2 (09:14→21:33)
[2022-08-17] MEDS: cloNIDine HCL 0.2 MG TABLET PO PRN ×2 (09:14→21:46)
[2022-08-17] MEDS: PANTOPRAZOLE SODIUM 40 MG/VIAL (PROTONIX) IVP SCH ×2 (09:15→21:31)
[2022-08-17 10:06] LABS: ANTI-SMOOTH MUSCLE AB 7 Units (0-19)
[2022-08-17] MEDS: THIAMINE HCL 100 MG, MAGNESIUM SULFATE 1 GM in NS 100 ML IV SCH (11:44)
[2022-08-17] MEDS: FOLIC ACID 1 MG, MVI 10 ML in NACL 0.9% 1,000 ML IV SCH (11:44)
[2022-08-17 12:46] VITALS: BP_SYST 171
[2022-08-17 13:37] LABS: BASOPHILS # (AUTO) 0.2 K/uL (0.0-0.2); BASOPHILS % (AUTO) 1.1 % (0.0-2.0); EOSINOPHILS # (AUTO) 0.2 K/uL (0.0-0.4); EOSINOPHILS % (AUTO) 1.4 % (0.0-4.0); HEMATOCRIT 35.2 % (36-54); LYMPHOCYTES # (AUTO) 1.9 K/uL (1.0-5.5); LYMPHOCYTES % (AUTO) 11.1 % (20.5-51.5); MEAN CORPUSCULAR VOLUME 98 fL (79.0-98.0); MONOCYTES # (AUTO) 0.7 K/uL (0.0-1.0); MONOCYTES % (AUTO) 4.1 % (1.7-9.3); NEUTROPHILS % (AUTO) 82.3 % (40.0-70.0); PLATELET COUNT (AUTO) 378 K/uL (130-430); RED BLOOD CELL COUNT(AUTO) 3.59 MIL/uL (4.2-6.2); RED CELL DISTRIBUTION WIDTH 14.1 % (9.0-15.0)
[2022-08-17] MEDS: FLUCONAZOLE 200 mg/ NS 100 ML IV SCH (16:47)
--- NOTE | 2022-08-17 18:44 | NUR ---
CLOSING NOTE Pt sitting up in bed visiting with his father. No s/s resp distress, no c/o pain or discomfort. Pt more awake today. IVF infusing well to NEREIDA midline at ordered rate with no s/s infiltration to site. Pt given turkey sandwich with tomato and cheese and ate 50%. All precautions remain in place. call light within reach.
[2022-08-17 19:40] VITALS: BP_SYST 187
--- NOTE | 2022-08-17 19:40 | NUR ---
INITIAL NOTE AT INITIAL ASSESSMENT, PATIENT IS RESTING IN BED, STABLE, NO SIGNS OF RESPIRATORY DISTRESS. HE IS LETHARGIC BUT AROUSABLE TO VOICE. PLAN OF CARE FOR THE EVENING IS COMMUNICATED WITH PATIENT AND HIS FATHER AT BEDSIDE. CALL LIGHT TEACH BACK IS SUCCESSFUL AT THIS TIME. PATIENT VERBALIZES NO PAIN. BED IS LOCKED, ALARMED, AND THE LOWEST LEVEL. FALL, SAFETY, ASPIRATION, AND RESPIRATORY PRECAUTIONS WILL BE TAKEN THROUGHOUT THE SHIFT.
[2022-08-17] MEDS: INSULIN REGULAR, HUMAN 100 UNITS/ML, 3 ML VIAL (humuLIN R) SUBCUT PRN (21:48)
--- NOTE | 2022-08-17 23:40 | NUR ---
HYGIENE CARE PATIENT HAD A BOWEL MOVEMENT AND A VOID, HYGIENE CARE PROVIDED AT THIS TIME, FRESH LINENS ALSO PROVIDED. HE IS REPOSITIONED FOR COMFORT, PATIENT TOLERATED WELL.
[2022-08-18] VITALS: BP_SYST 154
--- NOTE | 2022-08-18 01:40 | NUR ---
ROUNDS PATIENT IS SLEEPING, STABLE, NO SIGNS OF RESPIRATORY DISTRESS. CALL LIGHT IS WITHIN REACH OF HAND. BED IS LOCKED, ALARMED, AND AT THE LOWEST LEVEL.
[2022-08-18] MEDS: PIPERACILLIN/TAZO 4.5 GM in NS 100 ML IV SCH ×3 (06:23→21:14)
[2022-08-18] MEDS: INSULIN REGULAR, HUMAN 100 UNITS/ML, 3 ML VIAL (humuLIN R) SUBCUT PRN ×3 (06:24→21:05)
--- NOTE | 2022-08-18 06:51 | NUR ---
CLOSING NOTE PATIENT SLEPT WELL DURING THE NIGHT. HE WAS AROUSABLE TO VOICE, AND HE WAS COOPERATIVE TO CARE. HE HAD ONE BOWEL MOVEMENT. HE HAD NO COMPLAINTS OF PAIN THROUGHOUT THE NIGHT. CURRENTLY, THE PATIENT IS RESTING IN BED, STABLE, NO SIGNS OF RESPIRATORY DISTRESS. CALL LIGHT IS WITHIN REACH. BED IS LOCKED, ALARMED, AND AT THE LOWEST LEVEL. FALL, SAFETY, ASPIRATION, AND RESPIRATORY PRECAUTIONS HAVE BEEN IN PLACE THROUGHOUT THE NIGHT. WILL CONTINUE TO MONITOR UNTIL REPORT IS GIVEN AT BEDSIDE TO AM NURSE.
[2022-08-18 07:00] VITALS: BP_SYST 183
[2022-08-18 07:47] LABS: BASOPHILS # (AUTO) 0.1 K/uL (0.0-0.2); BASOPHILS % (AUTO) 0.8 % (0.0-2.0); EOSINOPHILS # (AUTO) 0.3 K/uL (0.0-0.4); EOSINOPHILS % (AUTO) 1.7 % (0.0-4.0); HEMATOCRIT 36.5 % (36-54); LYMPHOCYTES % (AUTO) 11.6 % (20.5-51.5); MEAN CORPUSCULAR VOLUME 97 fL (79.0-98.0); MONOCYTES # (AUTO) 0.5 K/uL (0.0-1.0); MONOCYTES % (AUTO) 2.8 % (1.7-9.3); NEUTROPHILS % (AUTO) 83.1 % (40.0-70.0); PLATELET COUNT (AUTO) 400 K/uL (130-430); RED BLOOD CELL COUNT(AUTO) 3.76 MIL/uL (4.2-6.2); RED CELL DISTRIBUTION WIDTH 14.4 % (9.0-15.0); WHITE BLOOD COUNT (AUTO) 16.9 K/uL (4.8-10.8)
[2022-08-18 08:00] VITALS: BP_SYST 183
[2022-08-18 08:20] LABS: CALCIUM 8.8 mg/dL (8.4-11.0); CREATININE 1.09 mg/dL (0.55-1.30); POTASSIUM 3.6 mmol/L (3.5-5.1); TOTAL BILIRUBIN 0.6 mg/dL (0.0-1.0)
[2022-08-18] MEDS: FOLIC ACID 1 MG TABLET PO SCH (08:56)
[2022-08-18] MEDS: HALOPERIDOL 1 MG TABLET (HALDOL) PO SCH ×3 (08:56→21:06)
[2022-08-18] MEDS: CARVEDILOL 12.5 MG TABLET (COREG) PO SCH ×2 (08:57→21:08)
[2022-08-18] MEDS: NEPHROVITE, (FOLIC ACID/VITAMIN B COMP W-C 1 TAB) PO SCH (08:57)
[2022-08-18] MEDS: GABAPENTIN 300 MG CAPSULE PO SCH ×3 (08:57→21:06)
[2022-08-18] MEDS: MULTIVITAMINS TAB 1 TABLET PO SCH ×2 (08:57→21:08)
[2022-08-18] MEDS: PANTOPRAZOLE SODIUM 40 MG/VIAL (PROTONIX) IVP SCH ×2 (08:58→21:06)
[2022-08-18] MEDS: THIAMINE HCL 100 MG TABLET GT SCH (08:58)
[2022-08-18] MEDS: levETIRAcetam 500 MG TABLET PO SCH ×2 (12:13→21:06)
[2022-08-18] MEDS: FOLIC ACID 1 MG, MVI 10 ML in NACL 0.9% 1,000 ML IV SCH (12:14)
[2022-08-18] MEDS: THIAMINE HCL 100 MG, MAGNESIUM SULFATE 1 GM in NS 100 ML IV SCH (12:15)
--- NOTE | 2022-08-18 12:36 | NUR ---
EMULSION OPERATOR ELADIA Montoya responded to a Social Work consult for "DC Planning to Psych Facility for Acute Psychosis". ELADIA Montoya reviewed psych consult notes that depict patient "doesn't meet 5150 criteria" and "unspecified mood disorder and unspecified psychosis". ELADIA Montoya consulted with assigned RN Dee Dee who denied patient exhibiting symptoms of psychosis while under her care. ELADIA Montoya met with patient at bedside. ACSW completed introductions, reason for referral, and provided business card. Mental Health- Patient shares he has "anxiety", but denies a formal diagnosis. He denies both audio and visual hallucinations, and denies any previous mental health diagnosis. Substance use- Patient has a history of ETOH use, declined resources at this time. ACSW inquired into his desire to pursue voluntary admission to inpatient psych to which he stated he did not need. In an effort to assess his understanding of his discharge plan, Patient was able to repeat he is going to be discharged home, his mother will help him, and he will receive home health. ACSW will continue to be available as needed
[2022-08-18 16:00] VITALS: BP_SYST 185
[2022-08-18] MEDS: FLUCONAZOLE 200 mg/ NS 100 ML IV SCH (17:19)
[2022-08-18] MEDS: cloNIDine HCL 0.2 MG TABLET PO PRN (17:32)
[2022-08-18 20:00] VITALS: BP_SYST 168
[2022-08-19] VITALS: BP_SYST 158
[2022-08-19 04:00] VITALS: BP_SYST 144
[2022-08-19] MEDS: PIPERACILLIN/TAZO 4.5 GM in NS 100 ML IV SCH ×3 (05:48→21:32)
--- NOTE | 2022-08-19 06:32 | NUR ---
ASLEEP THE WHOLE NIGHT. NO DISTRESS NOTED. KEPT WARM AND COMFORTABLE. PIV INFUSING WELL AND INTACT. BS CHECKED AND COVERED. ALL NEEDS ATTENDED. CALL LIGHT PLACED WITHIN REACH. MONITORED CLOSELY.
[2022-08-19] MEDS: CARVEDILOL 12.5 MG TABLET (COREG) PO SCH ×2 (08:34→21:31)
[2022-08-19] MEDS: HALOPERIDOL 1 MG TABLET (HALDOL) PO SCH ×3 (08:35→21:31)
[2022-08-19] MEDS: NEPHROVITE, (FOLIC ACID/VITAMIN B COMP W-C 1 TAB) PO SCH (08:35)
[2022-08-19] MEDS: THIAMINE HCL 100 MG TABLET GT SCH (08:35)
[2022-08-19] MEDS: levETIRAcetam 500 MG TABLET PO SCH ×2 (08:35→21:31)
[2022-08-19] MEDS: GABAPENTIN 300 MG CAPSULE PO SCH ×3 (08:35→21:31)
[2022-08-19] MEDS: MULTIVITAMINS TAB 1 TABLET PO SCH ×2 (08:36→21:31)
[2022-08-19] MEDS: PANTOPRAZOLE SODIUM 40 MG/VIAL (PROTONIX) IVP SCH ×2 (08:36→21:31)
[2022-08-19] MEDS: FOLIC ACID 1 MG TABLET PO SCH (08:38)
[2022-08-19 08:51] LABS: CARBOHYDRATE AG 19-9 83 U/mL (0-35)
[2022-08-19] MEDS: FOLIC ACID 1 MG, MVI 10 ML in NACL 0.9% 1,000 ML IV SCH (11:55)
[2022-08-19] MEDS: THIAMINE HCL 100 MG, MAGNESIUM SULFATE 1 GM in NS 100 ML IV SCH (11:56)
[2022-08-19] MEDS: FLUCONAZOLE 200 mg/ NS 100 ML IV SCH (15:00)
[2022-08-19 16:00] VITALS: BP_SYST 178
[2022-08-19 19:20] VITALS: BP_SYST 150
--- NOTE | 2022-08-19 19:20 | NUR ---
PM ASSESSMENT; -Pt is a/ox3, drowsy, easily arousal, resting in bed. No s/s any acute distress noted. NEREIDA MIDLINE patent,no s/s any infiltration noted. Discussed poc with pt and family at bedside, they verbalize understanding. Fall precaution in place. Bed alarmed, side rails x3,call light w/in reach. Cont to monitor pt.
[2022-08-19] MEDS: INSULIN REGULAR, HUMAN 100 UNITS/ML, 3 ML VIAL (humuLIN R) SUBCUT PRN (22:16)
[2022-08-20 00:12] VITALS: BP_SYST 156
--- NOTE | 2022-08-20 00:12 | NUR ---
ROUNDS; -Pt is asleep. NO s/s any acute distress noted. VSS. Fall precaution in place. Bed alarmed, side rails x3,call light w/in reach. Cont to monitor pt.
--- NOTE | 2022-08-20 04:00 | NUR ---
ROUNDS; -Pt is asleep. NO s/s any acute distress noted. Fall precaution in place. Bed alarmed, side rails x3,call light w/in reach. Cont to monitor pt.
[2022-08-20] MEDS: PIPERACILLIN/TAZO 4.5 GM in NS 100 ML IV SCH ×3 (06:29→21:32)
--- NOTE | 2022-08-20 06:36 | NUR ---
CLOSING NOTES; -Pt is resting in bed. No s/s any acute distress noted. NEREIDA MIDLINE patent,no s/s any infiltration noted. Fall precaution in place. Bed alarmed, side rails x3,call light w/in reach. Will endorse to next nurse to cont care.
[2022-08-20] MEDS: INSULIN REGULAR, HUMAN 100 UNITS/ML, 3 ML VIAL (humuLIN R) SUBCUT PRN ×3 (06:45→21:26)
[2022-08-20 07:09] LABS: BASOPHILS # (AUTO) 0.2 K/uL (0.0-0.2); BASOPHILS % (AUTO) 1.3 % (0.0-2.0); EOSINOPHILS # (AUTO) 0.3 K/uL (0.0-0.4); HEMATOCRIT 33.6 % (36-54); HEMOGLOBIN 11.6 g/dL (14.0-18.0); LYMPHOCYTES % (AUTO) 15.2 % (20.5-51.5); MEAN CORPUSCULAR HEMOGLOBIN 33 pg (27-31); MEAN CORPUSCULAR HGB CONC 34 % (32-36); MEAN CORPUSCULAR VOLUME 96 fL (79.0-98.0); MONOCYTES # (AUTO) 0.6 K/uL (0.0-1.0); MONOCYTES % (AUTO) 4.3 % (1.7-9.3); NEUTROPHILS % (AUTO) 77.2 % (40.0-70.0); PLATELET COUNT (AUTO) 394 K/uL (130-430); RED CELL DISTRIBUTION WIDTH 14.3 % (9.0-15.0)
--- NOTE | 2022-08-20 07:48 | NUR ---
PHYSICAL THERAPY CO-SIGN The Physical Therapy Progress Notes documented by Spring Winder have been reviewed. Reviewed/Co-Signed by: Bhupinder Washington Documentation Done by: MANNY CARRILLO PTA Addendum: 08/20/22 at 0748 by Bhupinder Washington PT Amended: Links added.
[2022-08-20 09:15] LABS: ALBUMIN 2.1 g/dL (3.4-4.8); CALCIUM 8.7 mg/dL (8.4-11.0); CREATININE 1.22 mg/dL (0.55-1.30); POTASSIUM 3.3 mmol/L (3.5-5.1); TOTAL BILIRUBIN 0.5 mg/dL (0.0-1.0)
[2022-08-20] MEDS: THIAMINE HCL 100 MG TABLET GT SCH (09:42)
[2022-08-20] MEDS: CARVEDILOL 12.5 MG TABLET (COREG) PO SCH ×2 (09:43→20:48)
[2022-08-20] MEDS: NEPHROVITE, (FOLIC ACID/VITAMIN B COMP W-C 1 TAB) PO SCH (09:43)
[2022-08-20] MEDS: PANTOPRAZOLE SODIUM 40 MG/VIAL (PROTONIX) IVP SCH ×2 (09:44→20:47)
[2022-08-20] MEDS: GABAPENTIN 300 MG CAPSULE PO SCH ×3 (09:44→20:47)
[2022-08-20] MEDS: HALOPERIDOL 1 MG TABLET (HALDOL) PO SCH ×3 (09:44→20:47)
[2022-08-20] MEDS: MULTIVITAMINS TAB 1 TABLET PO SCH ×2 (09:44→20:47)
[2022-08-20] MEDS: levETIRAcetam 500 MG TABLET PO SCH ×2 (10:16→20:47)
[2022-08-20] MEDS: FOLIC ACID 1 MG TABLET PO SCH (10:16)
[2022-08-20] MEDS: FOLIC ACID 1 MG, MVI 10 ML in NACL 0.9% 1,000 ML IV SCH (11:14)
[2022-08-20] MEDS: THIAMINE HCL 100 MG, MAGNESIUM SULFATE 1 GM in NS 100 ML IV SCH (11:15)
[2022-08-20 12:00] VITALS: BP_SYST 161
[2022-08-20] MEDS ORDERED: COR12.5 PO (15:59)
[2022-08-20] MEDS ORDERED: AMOX-423 PO (15:59)
[2022-08-20] MEDS ORDERED: DIF100 PO (15:59)
[2022-08-20] MEDS ORDERED: HAL1 PO ×2 (15:59)
[2022-08-20] MEDS ORDERED: NEPH PO (15:59)
[2022-08-20] MEDS ORDERED: NEU300 PO (15:59)
[2022-08-20] MEDS ORDERED: LACT1CAP81 PO (15:59)
[2022-08-20 16:06] VITALS: BP_SYST 158
[2022-08-20] MEDS: FLUCONAZOLE 200 mg/ NS 100 ML IV SCH (16:23)
--- NOTE | 2022-08-20 18:00 | NUR ---
AMBULATION ASSISTED WITH AMBULATION WITH FWW. PATIENT SHUFFLES WALK, AT APPROXIMATELY 12FEET, PATIENT KNEE STARTED TO BUCKLE. ASSISTED TO CHAIR TO REST. PARENTS AND DR METCALF BOTH ARE IN THE ROOM WITH PATIENT
--- NOTE | 2022-08-20 18:30 | NUR ---
DR. METCALF AWARE OF PT'S INABILITY TO WALK WITHOUT ASSISTANCE. PARENTS OF THE PATIENT STATE THAT THEY "FEEL UNCOMFORTABLE TAKING THE PATIENT HOME BY THEMSELVES". DISCHARGE HAS BEEN CANCELLED. PARENTS REQUESTING PT TO BE TRANSFERRED TO AN ACUTE REHAB FACILITY. WILL CONTINUE TO MONITOR
[2022-08-20 20:00] VITALS: BP_SYST 188
[2022-08-21] VITALS: BP_SYST 171
[2022-08-21] MEDS: cloNIDine HCL 0.2 MG TABLET PO PRN (01:19)
[2022-08-21 04:00] VITALS: BP_SYST 158
[2022-08-21] MEDS: PIPERACILLIN/TAZO 4.5 GM in NS 100 ML IV SCH ×2 (05:59→14:00)
[2022-08-21] MEDS: HALOPERIDOL 1 MG TABLET (HALDOL) PO SCH ×2 (09:00→09:38)
[2022-08-21] MEDS: NEPHROVITE, (FOLIC ACID/VITAMIN B COMP W-C 1 TAB) PO SCH (09:38)
[2022-08-21] MEDS: THIAMINE HCL 100 MG TABLET GT SCH (09:38)
[2022-08-21] MEDS: levETIRAcetam 500 MG TABLET PO SCH (09:38)
[2022-08-21] MEDS: PANTOPRAZOLE SODIUM 40 MG/VIAL (PROTONIX) IVP SCH ×2 (09:38→20:52)
[2022-08-21] MEDS: MULTIVITAMINS TAB 1 TABLET PO SCH ×2 (09:38→20:48)
[2022-08-21] MEDS: FOLIC ACID 1 MG TABLET PO SCH (09:38)
[2022-08-21] MEDS: GABAPENTIN 300 MG CAPSULE PO SCH (09:38)
[2022-08-21] MEDS: CARVEDILOL 12.5 MG TABLET (COREG) PO SCH ×2 (09:41→20:49)
[2022-08-21] MEDS: THIAMINE HCL 100 MG, MAGNESIUM SULFATE 1 GM in NS 100 ML IV SCH (10:55)
[2022-08-21] MEDS: FOLIC ACID 1 MG, MVI 10 ML in NACL 0.9% 1,000 ML IV SCH (10:55)
[2022-08-21 11:43] VITALS: BP_SYST 169
--- NOTE | 2022-08-21 15:38 | NUR ---
Discharge Planning: DCP faxed pt referral to [facility] P#[phone] F#[phone] for SNF. DCP to follow up
[2022-08-21 15:41] VITALS: BP_SYST 168
--- NOTE | 2022-08-21 16:25 | NUR ---
CM: Met with patient, mother and father at bedside , the patient is aaox3 wants to go home today. Mother and father confirmed " the pt has plenty of help from family members" Dr Ross made aware and ok for the pt discharges to home today. BEATRIZ Phillips aware.
[2022-08-21 18:00] VITALS: BP_SYST 170
--- NOTE | 2022-08-21 18:45 | NUR ---
PT IS BEING PREPARED FOR DISCHARGE. BLOOD PRESSURE AT 1805 WAS 170/108. PT WAS GIVEN CLONIDINE 0.2 MG. PTS BLOOD PRESSURE AT THIS TIME IS 178/119. PT IS LAYING IN BED, WATCHING TV. DENIES PAIN OR DISCOMFORT. MD NOTIFIED. ORDERS TO ADMINISTER 9PM MEDICATIONS AND DISCHARGE PT HOME. PT DENIES ANY NEGATIVE S/S AT THIS TIME. WILL CONTINUE TO MONITOR
[2022-08-21] MEDS ORDERED: levETIRAcetam 500 MG TABLET PO SCH (21:00)
[2022-08-21] MEDS: INSULIN REGULAR, HUMAN 100 UNITS/ML, 3 ML VIAL (humuLIN R) SUBCUT PRN (21:08)
--- NOTE | 2022-08-21 21:20 | NUR ---
D/C Patient Patient given medication reconciliation form and D/C instructions with parents at bedside. Exit Care provided. Patient verbalized understanding. MD discussed with patient the results and treatment provided. Ambulatory with assist and unsteady gait, discharge to home. Patient in stable condition, ID band removed. PICC line removed by dayshift nurse, no active bleeding. Patient educated on pain management. All belongings sent with patient. Patient taken out by wheelchair, father assisted to car.
[2022-08-22] MEDS ORDERED: THIAMINE HCL 100 MG TABLET PO SCH (09:00)
== END 2022-08-21 21:30 | disposition home health service (06) | DRG 282 ==
LOC: SED 17:09 → STU 21:41 → SMU 08-09 19:28
PROVIDERS: ADMIT Internal Medicine; ATTEND Internal Medicine
PROC: 05HY33Z Insertion of Infusion Device into Upper Vein, Percutaneous Approach (ICD-10-PCS; principal; 2022-08-09)
PROC: B54NZZA Ultrasonography of Left Upper Extremity Veins, Guidance (ICD-10-PCS; 2022-08-09)
DX: K85.90 Acute pancreatitis without necrosis or infection, unspecified (principal); N17.0 Acute kidney failure with tubular necrosis; E43 Unspecified severe protein-calorie malnutrition; K76.0 Fatty (change of) liver, not elsewhere classified; I10 Essential (primary) hypertension; E11.9 Type 2 diabetes mellitus without complications; F32.A Depression, unspecified; F41.9 Anxiety disorder, unspecified; R79.89 Other specified abnormal findings of blood chemistry; Z20.822 Contact with and (suspected) exposure to COVID-19; F12.19 Cannabis abuse with unspecified cannabis-induced disorder; F10.239 Alcohol dependence with withdrawal, unspecified; Y90.9 Presence of alcohol in blood, level not specified; F23 Brief psychotic disorder; E78.1 Pure hyperglyceridemia; Z79.4 Long term (current) use of insulin; Z68.29 Body mass index [BMI] 29.0-29.9, adult; Z56.0 Unemployment, unspecified
CPT/HCPCS: 36415; 70551; 71045; 74181; 76376; 76705; 80053; 80061; 80074; 80307; 81003; 82140; 82550; 82553; 82787; 82962; 82977; 83516; 83540; 83550; 83605; 83615; 83690; 83735; 84100; 84439; 84443; 84478; 84484; 85007; 85025; 85027; 85610-TC; 85730-TC; 86038; 86140; 86301; 87040; 92610-GN; 93005; 96361; 96365; 96375; 97110-GP; 97116-GP; 97530-GP; 99291; C9113; G0378; J0696; J1170; J1450; J1815; J2060; J2270; J2405; J2543; J3411; J3475; J3490; J7030; Q9964; Q9967